=== PATIENT | female | born 1965 | race Caucasian/White ===

== ENCOUNTER 2021-12-03 16:35 | Emergency (ER) | payer OTHER ==
[2021-12-03 18:11] LABS: CORONAVIRUS 2019 SARS-COV-2 NEGATIVE (NEGATIVE); INFLUENZA A NAA NEGATIVE (NEGATIVE)
[2021-12-03] MEDS ORDERED: VENTOLIN HFA IN18 GM INH (19:19)
[2021-12-03] MEDS ORDERED: MEDROL 4MG DOSEP4 MG PO (19:19)
== END 2021-12-03 19:45 | disposition home or self-care (01) ==
LOC: FER 16:35
PROVIDERS: Emergency Medicine
DX: B34.9 Viral infection, unspecified (principal); I10 Essential (primary) hypertension; G40.909 Epilepsy, unspecified, not intractable, without status epilepticus; Z20.822 Contact with and (suspected) exposure to COVID-19; Z79.899 Other long term (current) drug therapy
CPT/HCPCS: 71046; J2930; U0002